=== PATIENT | female | born 1990 | race Two or more races ===

== ENCOUNTER 2019-02-27 14:12 | Inpatient (IN) | payer OTHER ==
[~2019-02-27] VITALS: Ht 160 cm; Wt 77.1 kg
[~2019-02-27 14:12] MED LIST: AMOX1TAB12 PO; BUCALSEP SPRAY30 ML MM; GILTUSS TR TAB1 EACH PO; MOTRIN800 MG PO; TESSALON PERLE100 MG PO; ZOVIRAX15 GM TP; ZOVIRAX400 M1 PO
[2019-02-27] MEDS ORDERED: PRENATAL TABLE1 EAC1 PO (14:29)
[2019-03-02] MEDS ORDERED: NIFEDIPINE ER30 MG PO (15:39)
== END 2019-03-02 15:43 | disposition home or self-care (01) | DRG 833 ==
LOC: OBS/DEL 14:12 → LDR 02-28 08:38
PROVIDERS: ADMIT Specialist
PROC: 4A1HXCZ Monitoring of Products of Conception, Cardiac Rate, External Approach (ICD-10-PCS; principal; 2019-02-28)
DX: O47.02 False labor before 37 completed weeks of gestation, second trimester (principal)

== ENCOUNTER 2019-03-21 11:44 | Outpatient (CLI) | payer OTHER ==
[~2019-03-21 11:44] MED LIST changes: +NIFEDIPINE ER30 MG PO; +PRENATAL TABLE1 EAC1 PO
== END 2019-03-22 16:44 ==
LOC: OBS/DEL 11:44
DX: O60.03 Preterm labor without delivery, third trimester (principal); O35.8XX0 Maternal care for other (suspected) fetal abnormality and damage, not applicable or unspecified

== ENCOUNTER 2019-05-17 11:40 | Inpatient (IN) | payer OTHER ==
[~2019-05-17] VITALS: Ht 160 cm; Wt 86.6 kg
== END 2019-05-30 11:46 | disposition home or self-care (01) | DRG 807 ==
LOC: LDR 05-28 08:48 → SURG-SUITE 05-28 08:48 → OB/GYN 06-13 14:45
PROVIDERS: ADMIT Specialist
PROC: 10E0XZZ Delivery of Products of Conception, External Approach (ICD-10-PCS; principal; 2019-05-28)
PROC: 10907ZC Drainage of Amniotic Fluid, Therapeutic from Products of Conception, Via Natural or Artificial Opening (ICD-10-PCS; 2019-05-28)
PROC: 0W8NXZZ Division of Female Perineum, External Approach (ICD-10-PCS; 2019-05-28)
PROC: 3E033VJ Introduction of Other Hormone into Peripheral Vein, Percutaneous Approach (ICD-10-PCS; 2019-05-28)
PROC: 4A1HXCZ Monitoring of Products of Conception, Cardiac Rate, External Approach (ICD-10-PCS; 2019-05-28)
DX: O80 Encounter for full-term uncomplicated delivery (principal); Z37.0 Single live birth; Z3A.38 38 weeks gestation of pregnancy

== ENCOUNTER 2021-10-25 17:35 | Outpatient (CLI) | payer OTHER | END 2021-10-25 17:37 | disposition home or self-care (01) | LOC: SONOGRAMA 17:35 | PROVIDERS: ATTEND Pathology Anatomic Pathology & Clinical Pathology | DX: E04.1 Nontoxic single thyroid nodule (principal) ==

== ENCOUNTER 2023-03-05 14:24 | Emergency (ER) | payer OTHER ==
[~2023-03-05] VITALS: Ht 160 cm; Wt 76.2 kg
[2023-03-05 17:35] LABS: URINE APPEARANCE Cloudy; URINE BILIRRUBIN Negative (NEGATIVE); URINE BLOOD Negative; URINE COLOR Yellow; URINE GLUCOSE Negative (NEGATIVE); URINE LEUKOCYTE Negative; URINE NITRATE Negative; URINE PROTEIN Trace (NEGATIVE)
[2023-03-05 17:36] LABS: URINE EPITHELIAL CELLS 36.1 uL (0.0-38.8); URINE RBC 30.3 uL (0.0-20.8)
== END 2023-03-05 18:10 | disposition home or self-care (01) ==
LOC: ER 14:24
PROVIDERS: General Practice
DX: O23.40 Unspecified infection of urinary tract in pregnancy, unspecified trimester (principal); N39.0 Urinary tract infection, site not specified; Z91.040 Latex allergy status

== ENCOUNTER 2023-03-19 23:52 | Emergency (ER) | payer OTHER ==
[~2023-03-19] VITALS: Ht 160 cm; Wt 76.7 kg
[2023-03-20 04:03] LABS: HEMATOCRIT 36.8 % (36.0-45.00); HEMOGLOBIN 12.4 g/dL (12.0-15.00); MEAN CELL VOLUME 84.3 fL (80.00-100.00); MEAN CORPUSCULAR HEMOGLOBIN 28.5 pg (27.00-32.0); MEAN CORPUSCULAR HGB CONC 33.8 g/dl (32.0-36.0); PLATELET COUNT 221 K/uL (150-450); RED BLOOD COUNT 4.36 M/uL (4.00-6.00); RED CELL DISTRIBUTION WIDTH 13.4 % (11.5-14.5)
[2023-03-20] MEDS ORDERED: ZYNCOF 20-400120 ML PO ×2 (05:35→05:36)
[2023-03-20] MEDS ORDERED: BUDESONIDE0.5 MG/2 M IH (05:35)
[2023-03-20] MEDS ORDERED: ALBUTEROL2.5 MG/3 M IH (05:35)
== END 2023-03-20 05:39 | disposition home or self-care (01) ==
LOC: ER 23:53
PROVIDERS: General Practice
DX: J45.909 Unspecified asthma, uncomplicated (principal); Z20.822 Contact with and (suspected) exposure to COVID-19; Z91.040 Latex allergy status

== ENCOUNTER 2023-03-24 12:24 | Emergency (ER) | payer OTHER ==
[~2023-03-24] VITALS: Ht 160 cm; Wt 76.7 kg
[~2023-03-24 12:24] MED LIST changes: +ALBUTEROL2.5 MG/3 M IH; +BUDESONIDE0.5 MG/2 M IH; +ZYNCOF 20-400120 ML PO
[2023-03-24 16:58] LABS: HEMATOCRIT 38.7 % (36.0-45.00); HEMOGLOBIN 13.1 g/dL (12.0-15.00); MEAN CELL VOLUME 83.6 fL (80.00-100.00); MEAN CORPUSCULAR HEMOGLOBIN 28.2 pg (27.00-32.0); MEAN CORPUSCULAR HGB CONC 33.7 g/dl (32.0-36.0); PLATELET COUNT 251 K/uL (150-450); RED BLOOD COUNT 4.63 M/uL (4.00-6.00); RED CELL DISTRIBUTION WIDTH 13.6 % (11.5-14.5)
[2023-03-24] MEDS ORDERED: BUDESONIDE0.5 MG/2 M IH (18:11)
[2023-03-24] MEDS ORDERED: MUCINEX COLD-F180 ML PO (18:11)
[2023-03-24] MEDS ORDERED: MEDROLPACK PO (18:11)
[2023-03-24] MEDS ORDERED: XOPENEX CO1.25 MG/0. IH (18:11)
[2023-03-24] MEDS ORDERED: IPRATROPIU0.2 MG/1 M IH (18:11)
[2023-03-24] MEDS ORDERED: BENZONATATE100 MG PO (18:11)
== END 2023-03-24 18:22 ==
LOC: ER 12:25
PROVIDERS: Nurse Practitioner Family
DX: U07.1 COVID-19 (principal); Z98.890 Other specified postprocedural states; Z91.040 Latex allergy status
CPT/HCPCS: 36415; 71046; 94640; 96365; 99284; J2930

== ENCOUNTER 2024-05-03 09:52 | Outpatient (CLI) | payer OTHER ==
[~2024-05-03 09:52] MED LIST changes: +BENZONATATE100 MG PO; +IPRATROPIU0.2 MG/1 M IH; +MEDROLPACK PO; +MUCINEX COLD-F180 ML PO; +XOPENEX CO1.25 MG/0. IH
== END 2024-05-03 10:14 | disposition home or self-care (01) ==
LOC: RAD 09:52
PROVIDERS: ATTEND Orthopaedic Surgery
DX: M25.511 Pain in right shoulder (principal); M25.512 Pain in left shoulder; M25.561 Pain in right knee; M25.562 Pain in left knee; M25.551 Pain in right hip; M25.552 Pain in left hip
CPT/HCPCS: 73721

== ENCOUNTER 2024-06-13 00:01 | Emergency (ER) | payer OTHER ==
[~2024-06-13] VITALS: Ht 160 cm; Wt 79.4 kg
[2024-06-13 01:33] LABS: HEMATOCRIT 39.2 % (36.0-45.00); HEMOGLOBIN 13.2 g/dL (12.0-15.00); MEAN CELL VOLUME 86.3 fL (80.00-100.00); MEAN CORPUSCULAR HEMOGLOBIN 29.1 pg (27.00-32.0); MEAN CORPUSCULAR HGB CONC 33.7 g/dl (32.0-36.0); PLATELET COUNT 180 K/uL (150-450); RED BLOOD COUNT 4.54 M/uL (4.00-6.00); RED CELL DISTRIBUTION WIDTH 14.3 % (11.5-14.5)
[2024-06-13 01:49] LABS: ALBUMIN 3.5 gm/dL (3.4-5.0); BILIRUBIN TOTAL 0.22 mg/dL (0.3-1.2); CREATININE SERUM 0.7 mg/dL (0.55-1.02); GFR 96.37; GLOBULINA 3.6 G/DL (2.4-3.5); POTASSIUM 4.38 mEq/L (3.5-5.1); TOTAL PROTEIN 7.1 gm/dL (6.4-8.2)
== END 2024-06-13 02:30 | disposition home or self-care (01) ==
LOC: ER 00:04
PROVIDERS: General Practice
DX: R53.81 Other malaise (principal); R20.0 Anesthesia of skin; Z91.040 Latex allergy status

== ENCOUNTER → 2024-06-29 | Emergency (ER) | payer OTHER ==
[~2024-06-29] VITALS: Ht 160 cm; Wt 77.1 kg
[~2024-06-29] MED LIST changes: +DEXAMETHASONE SODIUM PHOSPHATE 4 MG/ML VIAL ONE; +KETOROLAC TROMETHAMINE 30 MG VIAL ONE
== END | disposition left against medical advice (07) ==
LOC: ER 17:59
DX: Z53.21 Procedure and treatment not carried out due to patient leaving prior to being seen by health care provider (principal)

== ENCOUNTER 2024-06-30 19:58 | Emergency (ER) | payer OTHER ==
[~2024-06-30] VITALS: Ht 160 cm; Wt 79.4 kg
[~2024-06-30 19:58] MED LIST changes: -DEXAMETHASONE SODIUM PHOSPHATE 4 MG/ML VIAL ONE; -KETOROLAC TROMETHAMINE 30 MG VIAL ONE
[2024-06-30 20:31] VITALS: BP 106/73; O2SAT 99
[2024-06-30] MEDS ORDERED: KETOROLAC TROMETHAMINE 15 MG VIAL IM STA (21:27)
[2024-06-30] MEDS ORDERED: DEXAMETHASONE SODIUM PHOSPHATE 4 MG/ML VIAL IM STA (21:28)
== END 2024-06-30 23:00 | disposition home or self-care (01) ==
LOC: ER 19:59
DX: S80.01XA Contusion of right knee, initial encounter (principal); V49.9XXA Car occupant (driver) (passenger) injured in unspecified traffic accident, initial encounter; Y93.89 Activity, other specified; Y92.413 State road as the place of occurrence of the external cause; Y99.9 Unspecified external cause status; E03.9 Hypothyroidism, unspecified; Z91.040 Latex allergy status

== ENCOUNTER → 2024-10-12 | Emergency (ER) | payer OTHER ==
[~2024-10-12] VITALS: Ht 160 cm; Wt 79.4 kg
[~2024-10-12] MED LIST changes: +GUAIFENESIN/DEXTROMETHORPHAN 100MG/10ML BLIST.PACK PO ONE; +IPRATROPIUM BROMIDE 0.5 MG/2.5 ML AMPUL.NEB IH SCH; +LEVALBUTEROL HCL 1.25 MG/3 ML SOLUTION IH SCH; +LEVOTHYROXINE25 MCG PO; +METHYLPREDNISOLONE SOD SUCC 125 MG VIAL IV ONE; +SINGULAIR10 MG PO
[2024-10-12 16:55] LABS: BASO % 0.3 % (0.1-1.2); EOS # 0.01 (0.04-0.54); EOS % 0.1 % (0.7-7.0); LYMPH # 2.83 (1.18-3.74); LYMPH % 26.4 % (19.3-53.1); MEAN PLATELET VOLUME 11.30 fl (9.4-12.4); MONO # 1.03 (0.24-0.82); MONO % 9.6 % (4.7-12.5); NEUT # 6.73 (1.56-6.13); NEUT % 62.7 % (34.0-71.1); RED CELL DISTRIBUTION WIDTH 14.2 % (11.6-14.4)
[2024-10-12 17:28] LABS: ALT/SGPT 46.0 U/L (12-78); AST/SGOT 23.0 U/L (15-37); BILIRUBIN TOTAL 0.37 mg/dL (0.3-1.2); BUN CREA RATIO 22.0 (7.0-25.0); CREATININE SERUM 0.74 mg/dL (0.55-1.02); GFR 90.38; GLOBULINA 3.6 G/DL (2.4-3.5); GLUCOSE FASTING 107.0 mg/dL (65-100); OSMOLALITY SERUM 287.0 MOSM/KG (275-295)
[2024-10-12 17:48] LABS: COVID-19 AG NEGATIVE (NEGATIVE)
== END | disposition home or self-care (01) ==
LOC: ER 14:01
PROVIDERS: General Practice
DX: J45.909 Unspecified asthma, uncomplicated (principal); Z91.040 Latex allergy status; E03.8 Other specified hypothyroidism; Z20.822 Contact with and (suspected) exposure to COVID-19